=== PATIENT | female | born 1935 | race Caucasian/White ===

== ENCOUNTER 2017-11-27 08:27 | Inpatient (IN) | payer BC ==
[~2017-11-27] VITALS: Ht 160 cm; Wt 63.5 kg
[2017-11-27 09:50] LABS: BASOPHIL % 0.4 % (0-2); PLATELET COUNT 238 x10^3mcL (130-400); RED CELL DISTRIBUTION WIDTH 13.3 % (11.5-14.5)
[2017-11-27 10:04] LABS: CALCIUM 8.7 mg/dL (8.5-10.1); CARBON DIOXIDE 28.9 mmol/L (21-32); CHLORIDE SERUM 104 mmol/L (98-107); CREATININE SERUM 0.8 mg/dL (0.6-1.0); GLUCOSE SERUM 105 mg/dL (74-106); SODIUM SERUM 138 mmol/L (136-145)
[2017-11-27 10:08] LABS: ALBUMIN 3.4 g/dL (3.4-5.0); ALKALINE PHOSPHATASE 54 U/L (46-116); ALT/SGPT 13 U/L (14-59); AMYLASE 105 U/L (25-115); AST/SGOT 22 U/L (15-37); BILIRUBIN TOTAL 0.6 mg/dL (0.20-1.00); CHOLESTEROL 148 mg/dL (<200); HDL CHOLESTEROL 57 mg/dL (40-60); LIPASE 690 IU/L (73-393); TOTAL PROTEIN, SERUM 6.7 g/dL (6.4-8.2)
[2017-11-27] MEDS ORDERED: ZESTRIL5 MG PO (11:48)
[2017-11-27] MEDS ORDERED: LEVOTHYROXIN0.025 M2 PO (11:49)
[2017-11-27] MEDS ORDERED: CHILDREN'S5 MG/5 M1 PO (11:49)
[2017-11-27 12:30] LABS: FREE T4 1.3 ng/dL (0.76-1.46); FREE THYROXINE INDEX 2.9 ug/dL (1.4-4.5); T4(THYROXINE) 8.4 ug/dL (4.7-13.3)
[2017-11-27 12:47] LABS: T3 TOTAL 1.09 ng/mL
[2017-11-27 12:57] LABS: MAGNESIUM 2.2 mg/dL (1.8-2.4); PHOSPHOROUS 3.1 mg/dL (2.5-4.9)
[2017-11-27 14:20] VITALS: BP 172/74
[2017-11-27 15:04] VITALS: BP 155/63
[2017-11-27 16:10] VITALS: BP 137/59
[2017-11-27] MEDS ORDERED: FLUOXETINE40 MG PO (19:14)
[2017-11-27] MEDS ORDERED: MELOXICAM7.5 M1 PO (19:15)
[2017-11-27] MEDS ORDERED: VERAPAMIL HCL240 MG PO (19:16)
[2017-11-27 21:06] VITALS: BP 132/62
[2017-11-28 06:02] VITALS: BP 168/76
[2017-11-28 09:11] VITALS: BP 147/58
[2017-11-28 09:27] LABS: CARBON DIOXIDE 29.2 mmol/L (21-32); CHLORIDE SERUM 107 mmol/L (98-107); CREATININE SERUM 0.9 mg/dL (0.6-1.0); GLUCOSE SERUM 185 mg/dL (74-106); MAGNESIUM 2.2 mg/dL (1.8-2.4); PHOSPHOROUS 2.7 mg/dL (2.5-4.9); POTASSIUM SERUM 3.9 mmol/L (3.5-5.1); SODIUM SERUM 138 mmol/L (136-145)
[2017-11-28 09:31] LABS: BASOPHIL % 0.4 % (0-2); PLATELET COUNT 224 x10^3mcL (130-400); RED CELL DISTRIBUTION WIDTH 13.2 % (11.5-14.5)
[2017-11-28 13:47] VITALS: BP 147/58
[2017-11-28 14:05] VITALS: BP 149/51
[2017-11-28 14:06] LABS: microscopic required? YES; urine erythrocyte NEGATIVE (NEGATIVE)
[2017-11-28 14:16] LABS: AMPHETAMINE QUAL UR NONE DETECTED (See below)
== END 2017-11-28 15:07 | disposition home health service (06) | DRG 562 ==
LOC: ED 08:27 → DU 11:15
PROVIDERS: Emergency Medicine; Family Medicine
PROC: 0RSXXZZ Reposition Left Finger Phalangeal Joint, External Approach (ICD-10-PCS; principal; 2017-11-27)
DX: S63.245A Subluxation of distal interphalangeal joint of left ring finger, initial encounter (principal); N17.0 Acute kidney failure with tubular necrosis; I45.2 Bifascicular block; E44.1 Mild protein-calorie malnutrition; S01.112A Laceration without foreign body of left eyelid and periocular area, initial encounter; S00.83XA Contusion of other part of head, initial encounter; S60.222A Contusion of left hand, initial encounter; S60.221A Contusion of right hand, initial encounter; I10 Essential (primary) hypertension; E03.9 Hypothyroidism, unspecified; F17.210 Nicotine dependence, cigarettes, uncomplicated; W01.198A Fall on same level from slipping, tripping and stumbling with subsequent striking against other object, initial encounter; Y92.031 Bathroom in apartment as the place of occurrence of the external cause
CPT/HCPCS: 83880; 84439; 90715; 97110-GP; 97535-GP; J2001; J7030; J8597; Q0092